=== PATIENT | male | born 1945 | race Caucasian/White ===

== ENCOUNTER 2018-02-20 10:10 | Outpatient (CLI) | payer MEDICARE ==
--- NOTE | 2018-02-20 11:50 | ULT ---
BILATERAL CAROTID DUPLEX ULTRASOUND WITH SPECTRAL ANALYSIS AND COLOR FLOW EVALUATION: Date: 02-20-18 History: Confusion. FINDINGS: Grayscale, color flow, doppler evaluation, and spectral analysis of the bilateral carotid arteries is performed with 2D imaging. There is mild atherosclerotic plaque seen in the region of the carotid bulbs bilaterally. There is less than 50% maximal stenosis in the bilateral internal carotid arteries and peak systolic velocities in the ICA/CCA ratios. The peak systolic velocity in the right ICA is 107 cm/sec with an I CA/CCA ratio of 0.96. The peak systolic velocity in the left ICA is 73.4 cm/sec with an ICA/CCA ratio of 0.51. Antegrade flow is demonstrated in the vertebral arteries bilaterally. IMPRESSION: No hemodynamically significant stenosis in the bilateral internal carotid arteries. POS: TINA
== END 2018-02-20 10:11 | disposition home or self-care (01) ==
LOC: BICULT 10:10
PROVIDERS: ATTEND Psychiatry & Neurology Neurology
DX: G45.9 Transient cerebral ischemic attack, unspecified (principal); F44.89 Other dissociative and conversion disorders
CPT/HCPCS: 93880

== ENCOUNTER 2018-05-23 13:24 | Outpatient (CLI) | payer MEDICARE ==
--- NOTE | 2018-05-23 14:44 | MRI ---
EXAM: MRI cervical spine without contrast HISTORY: Neck pain COMPARISON: None TECHNIQUE: Multiplanar multisequence MR images were obtained of the cervical spine without contrast. FINDINGS: The vertebral bodies and intervertebral discs demonstrate normal height and alignment without fractur e or subluxation. Generalized disc desiccation is seen. The visualized cord demonstrates normal signal throughout. The craniocervical junction is unremarkab le. The prevertebral soft tissues are unremarkable. No paraspinal soft tissue abnormality is seen. C2/3: No significant posterior bulge or protrusion. No posterior facet arthrosis. No central canal stenosis. No neural foraminal stenosis. C3/4: A small disc osteophyte complex is seen. No posterior facet arthrosis. No central canal steno sis. Moderate to severe bilateral neural foraminal stenosis, left greater than right. C4/5: A minimal disc osteophyte complex is seen. No posterior facet arthrosis. No central canal jonathan nosis. Mild bilateral neural foraminal stenosis. C5/6: No significant posterior bulge or protrusion. Mild bilateral posterior facet arthrosis. No ce ntral canal stenosis. No neural foraminal stenosis. C6/7: A small disc osteophyte complex is seen. No posterior facet arthrosis. No central canal steno sis. Moderate right and mild left neural foraminal stenosis. C7/T1: No significant posterior bulge or protrusion. No posterior facet arthrosis. No central canal stenosis. No neural foraminal stenosis. IMPRESSION: Degenerative changes of the cervical spine as above.
== END 2018-05-23 13:25 | disposition home or self-care (01) ==
LOC: BICMRI 13:24
PROVIDERS: ATTEND Orthopaedic Surgery Hand Surgery
DX: M54.12 Radiculopathy, cervical region (principal); M48.02 Spinal stenosis, cervical region
CPT/HCPCS: 72141